=== PATIENT | female | born 1970 | race Caucasian/White ===

== ENCOUNTER 2017-10-31 06:48 | Emergency (ER) | payer OTHER ==
[~2017-10-31] VITALS: Ht 162.6 cm; Wt 74.4 kg
[~2017-10-31 06:48] MED LIST: VAL5
[2017-10-31 07:00] VITALS: Ht 162.6 cm; Wt 74.4 kg
[2017-10-31 07:43] LABS: BASOPHIL % 0.5 % (0-2); PLATELET COUNT 368 x10^3mcL (130-400)
[2017-10-31 07:48] LABS: RED CELL DISTRIBUTION WIDTH 18.1 % (11.5-14.5)
[2017-10-31 07:50] LABS: rbc morphology (normal/abnorm) ABNORMAL (NORMAL)
[2017-10-31 08:01] LABS: CALCIUM 8.4 mg/dL (8.5-10.1); CARBON DIOXIDE 24.9 mmol/L (21-32); CHLORIDE SERUM 106 mmol/L (98-107); CREATININE SERUM 0.8 mg/dL (0.6-1.0); GFR1 > 60 mL/min; GLUCOSE SERUM 90 mg/dL (74-106); POTASSIUM SERUM 4.3 mmol/L (3.5-5.1); SODIUM SERUM 141 mmol/L (136-145)
[2017-10-31 08:06] LABS: ALKALINE PHOSPHATASE 77 U/L (46-116); ALT/SGPT 17 U/L (14-59); AST/SGOT 13 U/L (15-37); BILIRUBIN TOTAL 0.3 mg/dL (0.20-1.00); TOTAL PROTEIN, SERUM 6.9 g/dL (6.4-8.2)
[2017-10-31 08:10] LABS: ALBUMIN 3.2 g/dL (3.4-5.0)
[2017-10-31 09:44] VITALS: BP 110/74
== END 2017-10-31 09:44 | disposition home or self-care (01) ==
LOC: ED 06:48
PROVIDERS: Emergency Medicine
DX: R06.00 Dyspnea, unspecified (principal); M79.7 Fibromyalgia
CPT/HCPCS: 83880; 85378; J1200; J2930; J7613; J7644; Q0092; Q9967